=== PATIENT | male | born 1965 | race Caucasian/White ===

== ENCOUNTER 2016-10-20 09:42 | Day surgery (SDC) | payer OTHER ==
[~2016-10-20] VITALS: Ht 182.9 cm; Wt 138.0 kg
[~2016-10-20 09:42] MED LIST: CLARITIN 1010 MG/TAB PO; GLUCOSAMINE 1000 PO; LIPITOR20 MG PO; NAPROSYN 2250 MG/TAB; OMEGA 31000 MG PO; PRILOSEC 20MG20 MG PO; ZESTRIL40 MG PO
[2016-10-20] MEDS ORDERED: LIPITOR 40MG TA40 MG PO (10:42)
[2016-10-20] MEDS ORDERED: NAPROSYN500 MG PO (10:43)
[2016-10-20] MEDS ORDERED: PREVACID24HROTC PO (10:44)
[2016-10-20 10:45] VITALS: BP 142/87; PULSE 96; TEMP 97
[2016-10-20 11:20] VITALS: BP 126/86; PULSE 104
[2016-10-20 11:30] VITALS: BP 110/82; PULSE 95
== END 2016-10-20 12:00 | disposition home or self-care (01) ==
LOC: SDCO 09:42
DX: K21.0 Gastro-esophageal reflux disease with esophagitis (principal); I10 Essential (primary) hypertension; Z79.899 Other long term (current) drug therapy; E78.00 Pure hypercholesterolemia, unspecified
CPT/HCPCS: J2250; J3010; J7030

== ENCOUNTER → 2020-03-08 | Outpatient (CLI) | payer OTHER ==
[~2020-03-08] MED LIST changes: +LIPITOR 40MG TA40 MG PO; +NAPROSYN500 MG PO; +PREVACID24HROTC PO
== END ==
LOC: ZCOL.LAB 17:14
DX: H60.61 Unspecified chronic otitis externa, right ear (principal)

== ENCOUNTER → 2022-08-02 | Outpatient (CLI) | payer OTHER | LOC: MHCPAIN 10:54 | DX: M47.896 Other spondylosis, lumbar region (principal); M54.16 Radiculopathy, lumbar region; M51.36 Other intervertebral disc degeneration, lumbar region | CPT/HCPCS: G0463; J1100; Q9967 ==

== ENCOUNTER → 2022-08-30 | Outpatient (CLI) | payer OTHER | LOC: MHCPAIN 12:36 | DX: M51.36 Other intervertebral disc degeneration, lumbar region (principal); M47.896 Other spondylosis, lumbar region; M54.16 Radiculopathy, lumbar region | CPT/HCPCS: G0463 ==

== ENCOUNTER → 2024-01-23 | Outpatient (CLI) | payer OTHER | LOC: MHCPAIN 09:05 | DX: M43.17 Spondylolisthesis, lumbosacral region (principal); M47.816 Spondylosis without myelopathy or radiculopathy, lumbar region; M51.26 Other intervertebral disc displacement, lumbar region | CPT/HCPCS: G0463 ==

== ENCOUNTER → 2024-02-21 | Outpatient (CLI) | payer OTHER ==
[~2024-02-21] MED LIST changes: +Iohexol 300 - 10 ML VIAL ONE; +Lidocaine PF 2% (20 MG/ML) 2 ML VIAL ONE
== END ==
LOC: MHCPAIN 11:33
DX: M54.16 Radiculopathy, lumbar region (principal); M47.896 Other spondylosis, lumbar region
CPT/HCPCS: J1100; Q9967